=== PATIENT | female | born 1955 | race Caucasian/White ===

== ENCOUNTER 2021-10-05 10:15 | Outpatient (CLI) | payer MEDICAID, SELFPAY ==
[2021-10-05 21:25] LABS: Chloride* 102 mmol/L (96-114); Potassium* 4.5 mmol/L (3.6-5.1); Sodium* 139 mmol/L (135-149)
[2021-10-05 21:28] LABS: Creatinine* 0.7 mg/dL (0.5-1.5); Estimated Glomerular Filt Rate 95 ml/min
[2021-10-05 21:29] LABS: Blood Urea Nitrogen* 15 mg/dL (7-30); Calcium* 9.7 mg/dL (8.4-10.6); Carbon Dioxide* 30 mmol/L (20-32); Glucose* 111 mg/dL (60-115); Uric Acid* 4.8 mg/dL (2.2-8.4)
== END 2021-10-05 10:16 | disposition home or self-care (01) ==
PROVIDERS: PCP Emergency Medicine; Visit Provider Emergency Medicine
DX: I10 Essential (primary) hypertension (principal); M25.50 Pain in unspecified joint; M54.50 Low back pain, unspecified
CPT/HCPCS: 80048; 84550; 86140

== ENCOUNTER 2022-05-13 09:07 | Outpatient (CLI) | payer MEDICAID, SELFPAY | END 2022-05-13 09:08 | disposition home or self-care (01) | PROVIDERS: PCP Emergency Medicine; Visit Provider Emergency Medicine Emergency Medical Services | DX: R55 Syncope and collapse (principal) | CPT/HCPCS: A0998 ==

== ENCOUNTER 2022-12-28 09:42 | Outpatient (CLI) | payer MEDICAID, SELFPAY | END 2022-12-28 09:43 | disposition home or self-care (01) | PROVIDERS: PCP Emergency Medicine; Visit Provider Nurse Practitioner Family | DX: R50.9 Fever, unspecified (principal); R21 Rash and other nonspecific skin eruption; I10 Essential (primary) hypertension | CPT/HCPCS: 86592; 86618; 86658 ==

== ENCOUNTER 2024-02-14 13:52 | Outpatient (CLI) | payer MEDICAID, SELFPAY | END 2024-02-14 13:53 | disposition home or self-care (01) | PROVIDERS: PCP Emergency Medicine; Visit Provider Nurse Practitioner Family | DX: R53.83 Other fatigue (principal); Z13.6 Encounter for screening for cardiovascular disorders | CPT/HCPCS: 80061 ==

== ENCOUNTER 2024-03-03 16:35 | Outpatient (CLI) | payer MEDICAID, SELFPAY | END 2024-03-03 16:36 | disposition home or self-care (01) | LOC: LKVREF 16:36 | PROVIDERS: PCP Emergency Medicine; Visit Provider Emergency Medicine | DX: R79.89 Other specified abnormal findings of blood chemistry (principal); R73.01 Impaired fasting glucose; I10 Essential (primary) hypertension | CPT/HCPCS: 80048 ==

== ENCOUNTER 2024-04-29 13:59 | Outpatient (CLI) | payer MEDICAID, SELFPAY | END 2024-04-29 14:00 | disposition home or self-care (01) | PROVIDERS: PCP Emergency Medicine; Visit Provider Emergency Medicine | DX: R55 Syncope and collapse (principal); I34.0 Nonrheumatic mitral (valve) insufficiency; I51.7 Cardiomegaly; I47.10 Supraventricular tachycardia, unspecified; Z13.820 Encounter for screening for osteoporosis; M85.89 Other specified disorders of bone density and structure, multiple sites | CPT/HCPCS: 77080; 93306 ==

== ENCOUNTER 2024-06-26 15:04 | Outpatient (CLI) | payer MEDICAID, SELFPAY ==
--- NOTE | 2024-06-26 15:00 | CRLHL7_ITS ---
For Patients: As a result of the Century Cures Act, medical imaging exams and procedure reports are released immediately into your electronic medical record. You may view this report before your referring provider. If you have questions, please contact your health care provider. INDICATION: BILATERAL SCREENING MAMMOGRAM, ASYMPTOMATIC 68 Y/O FEMALE COMPARISON: BASELINE TECHNIQUE: CC and MLO views were obtained. These mammographic images have been obtained using full-field digital technique. These mammographic images were interpreted with the benefit of computer aided detection and tomosynthesis. BREAST COMPOSITION: The breasts are almost entirely fatty. FINDINGS: No suspicious findings. ASSESSMENT: BI-RADS 1 Negative RECOMMENDATION: Annual screening mammogram. A lay language report of this examination will be provided to the patient. Dictated by: Boogie Navarro MD @ 07/06/2024 13:20:55 (Electronically Signed)
== END 2024-06-26 15:05 | disposition home or self-care (01) ==
LOC: MAMMO 15:05
PROVIDERS: PCP Emergency Medicine; Visit Provider Emergency Medicine
DX: Z12.31 Encounter for screening mammogram for malignant neoplasm of breast (principal)
CPT/HCPCS: 77063; 77067

== ENCOUNTER 2024-07-07 14:21 | Outpatient (CLI) | payer MEDICAID, SELFPAY | END 2024-07-07 14:22 | disposition home or self-care (01) | LOC: LKVREF 14:22 | PROVIDERS: PCP Emergency Medicine; Visit Provider Emergency Medicine | DX: I10 Essential (primary) hypertension (principal) | CPT/HCPCS: 80048 ==